=== PATIENT | male | born 1985 | race Caucasian/White ===

== ENCOUNTER 2022-01-06 09:33 | Day surgery (SDC) | payer BC, OTHER ==
[~2022-01-06 09:33] MED LIST: Lactated Ringers 1,000 ML IV SCH; Lidocaine 2% 5 ML SDV ONE; Propofol 200 MG/20 ML SDV ONE; fentaNYL 100 MCG/2 ML SDV ONE
[2022-01-06 11:22] VITALS: BP 147/98; PULSE 94
== END 2022-01-06 11:11 | disposition home or self-care (01) ==
LOC: MW.SDS 09:33
PROVIDERS: ATTEND Surgery
DX: K31.89 Other diseases of stomach and duodenum (principal); K31.819 Angiodysplasia of stomach and duodenum without bleeding; K22.89 Other specified disease of esophagus; K21.9 Gastro-esophageal reflux disease without esophagitis; F17.210 Nicotine dependence, cigarettes, uncomplicated; Z79.899 Other long term (current) drug therapy
CPT/HCPCS: J2704; J3010; J7120

== ENCOUNTER 2023-03-27 08:01 | Observation (INO) | payer OTHER ==
[2023-03-27] MEDS ORDERED: Sodium Chloride 0.9% 1,000 ML IV ONE (08:09)
[2023-03-27] MEDS ORDERED: Sodium Chloride 0.9% 10 ML Syringe FLUSH PRN ×2 (08:09→14:00)
[2023-03-27] MEDS ORDERED: Sodium Chloride 0.9% 2.5 ML Syringe FLUSH PRN ×2 (08:09→14:00)
[2023-03-27] MEDS ORDERED: Famotidine 20 MG/2 ML SDV IVPUSH ONE (08:43)
[2023-03-27] MEDS ORDERED: Ondansetron 4 MG/2 ML SDV IVPUSH ONE (08:43)
[2023-03-27 08:47] LABS: BASOPHILS PERCENT AUTO 0.3 % (0.0-1.5); HEMATOCRIT 48.3 % (38.0-50.0); HEMOGLOBIN 16.6 g/dL (13.0-17.0); LYMPHOCYTES ABSOLUTE AUTO 0.5 K/uL (0.6-2.4); LYMPHOCYTES PERCENT AUTO 5.6 % (16.0-40.0); MEAN CORPUSCULAR HEMOGLOBIN 32.3 pg (27.0-32.0); MEAN CORPUSCULAR HGB CONC 34.4 g/dL (31.0-37.0); MONOCYTES ABSOLUTE AUTO 0.5 K/uL (0.0-0.8); MONOCYTES PERCENT AUTO 5.6 % (0.0-15.0); NEUTROPHILS ABSOLUTE AUTO 8.1 K/uL (1.4-5.7); NEUTROPHILS PERCENT AUTO 88.5 % (48.0-80.0); NRBC ABSOLUTE 0 K/uL; PLATELET COUNT,PLT 157 K/uL (150-400); RED BLOOD CELL COUNT 5.14 M/uL (4.50-5.90); WHITE BLOOD CELL COUNT,WBC 9.21 K/uL (4.0-11.0)
[2023-03-27 09:15] LABS: A/G RATIO 0.8 (0.9-1.6); ALBUMIN 3.6 g/dL (3.4-5.0); BILIRUBIN TOTAL 1.2 mg/dL (0.2-1.0); CALCIUM 9.4 mg/dL (8.5-10.1); CARBON DIOXIDE,CO2 24.1 mmol/L (21.0-32.0); CREATININE 1.3 mg/dL (0.8-1.3); EST CRCL DRUG DOSING (CG) 82.86 mL/min; POTASSIUM,K 3.7 mmol/L (3.5-5.1); PROTEIN TOTAL,TP 8.4 g/dL (6.4-8.2)
[2023-03-27 09:17] LABS: CORONAVIRUS COVID-19 NAA NEGATIVE (NEGATIVE); INFLUENZA A NAA NEGATIVE (NEGATIVE); INFLUENZA B NAA NEGATIVE (NEGATIVE); RESPIRATORY SYNCYTIAL VIR NAA NEGATIVE (NEGATIVE)
[2023-03-27 11:13] LABS: INR 1.12 (0.86-1.11)
[2023-03-27] MEDS ORDERED: ACETYLCYSTEINE IV ONE ×2 (13:30)
[2023-03-27] MEDS ORDERED: DEXTROSE 5% IV ONE ×2 (13:30)
[2023-03-27] MEDS ORDERED: WATER IV ONE ×2 (13:30)
[2023-03-27] MEDS ORDERED: Pantoprazole 40 MG in Sodium Chloride 0.9% 10 ML IVPUSH SCH (14:00)
[2023-03-27] MEDS ORDERED: Ondansetron 4 MG/2 ML SDV IVPUSH PRN (14:00)
[2023-03-27] MEDS ORDERED: LORazepam 2 MG/ML SDV IVPUSH PRN (14:03)
[2023-03-27] MEDS ORDERED: diphenhydrAMINE 50 MG Cap PO ONE (16:11)
[2023-03-27] MEDS: Sodium Chloride 0.9% 1,000 ML IV SCH ×2 (16:17→21:36)
[2023-03-27] MEDS ORDERED: Folic Acid 1 MG Tab PO SCH (21:00)
[2023-03-27] MEDS ORDERED: Thiamine 100 MG Tab PO SCH (21:00)
[2023-03-28] MEDS: Sodium Chloride 0.9% 1,000 ML IV SCH (05:02)
[2023-03-28 06:37] LABS: BASOPHILS PERCENT AUTO 0.7 % (0.0-1.5); EOSINOPHILS PERCENT AUTO 0.7 % (0.0-7.0); HEMATOCRIT 46.1 % (38.0-50.0); HEMOGLOBIN 15.5 g/dL (13.0-17.0); LYMPHOCYTES PERCENT AUTO 24.4 % (16.0-40.0); MEAN CORPUSCULAR HEMOGLOBIN 31.7 pg (27.0-32.0); MEAN CORPUSCULAR HGB CONC 33.6 g/dL (31.0-37.0); MEAN CORPUSCULAR VOLUME 94.3 fL (80.0-98.0); MONOCYTES ABSOLUTE AUTO 0.7 K/uL (0.0-0.8); MONOCYTES PERCENT AUTO 17.2 % (0.0-15.0); NEUTROPHILS ABSOLUTE AUTO 2.3 K/uL (1.4-5.7); NRBC ABSOLUTE 0 K/uL; PLATELET COUNT,PLT 122 K/uL (150-400); RED BLOOD CELL COUNT 4.89 M/uL (4.50-5.90); WHITE BLOOD CELL COUNT,WBC 4.06 K/uL (4.0-11.0)
[2023-03-28 06:44] LABS: INR 1.17 (0.86-1.11)
[2023-03-28 07:13] LABS: A/G RATIO 0.6 (0.9-1.6); ALBUMIN 2.9 g/dL (3.4-5.0); CARBON DIOXIDE,CO2 27.9 mmol/L (21.0-32.0); CREATININE 1.2 mg/dL (0.8-1.3); EST CRCL DRUG DOSING (CG) 89.77 mL/min; MAGNESIUM 1.7 mg/dL (1.8-2.4); PHOSPHORUS 4.6 mg/dL (2.6-4.7); PROTEIN TOTAL,TP 7.6 g/dL (6.4-8.2)
[2023-03-28] MEDS ORDERED: Lisinopril/Hydrochlorothiazide 10-12.5 MG Tab PO SCH (09:00)
[2023-03-28 10:11] VITALS: BP 138/103; PULSE 89
[2023-03-30 12:07] LABS: HBSAG SCREEN Negative (Negative); HCV AB Non Reactive (Non Reactive); HEP A AB, IGM Negative (Negative); HEP B CORE AB, IGM Negative (Negative)
== END 2023-03-28 10:59 | disposition home or self-care (01) ==
LOC: MW.ED 08:01 → MW.MS 13:44
PROVIDERS: ADMIT Family Medicine; ATTEND Family Medicine
DX: T50.905A Adverse effect of unspecified drugs, medicaments and biological substances, initial encounter (principal); T39.1X1A Poisoning by 4-Aminophenol derivatives, accidental (unintentional), initial encounter; B17.9 Acute viral hepatitis, unspecified; I10 Essential (primary) hypertension; F10.10 Alcohol abuse, uncomplicated; R11.2 Nausea with vomiting, unspecified; K71.6 Toxic liver disease with hepatitis, not elsewhere classified; J30.9 Allergic rhinitis, unspecified; K21.9 Gastro-esophageal reflux disease without esophagitis; Z98.890 Other specified postprocedural states; Z87.891 Personal history of nicotine dependence; Z78.9 Other specified health status; Z88.1 Allergy status to other antibiotic agents; Z20.822 Contact with and (suspected) exposure to COVID-19; Z79.899 Other long term (current) drug therapy
CPT/HCPCS: 0241U; 36415; 74176; 76705; 80053; 80074; 80143; 83690; 83735; 84100; 85025; 85610; A9270; C9113; J0132; J2405; J3490; J7030; J7060; 96361; 96374; 96375; 99284; 99285-25

== ENCOUNTER 2023-04-14 06:37 | Emergency (ER) | payer OTHER ==
[2023-04-14] MEDS ORDERED: Ondansetron 4 MG/2 ML SDV IVPUSH ONE (06:43)
[2023-04-14] MEDS ORDERED: Sodium Chloride 0.9% 10 ML Syringe FLUSH PRN (06:43)
[2023-04-14] MEDS ORDERED: Ketorolac 30 MG/ML SDV IVPUSH ONE (06:43)
[2023-04-14] MEDS ORDERED: Sodium Chloride 0.9% 2.5 ML Syringe FLUSH PRN (06:43)
[2023-04-14 07:21] LABS: BASOPHILS ABSOLUTE AUTO 0.1 K/uL (0.0-0.1); BASOPHILS PERCENT AUTO 0.7 % (0.0-1.5); EOSINOPHILS ABSOLUTE AUTO 0.2 K/uL (0.0-0.7); EOSINOPHILS PERCENT AUTO 1.9 % (0.0-7.0); HEMATOCRIT 42.2 % (38.0-50.0); HEMOGLOBIN 14.3 g/dL (13.0-17.0); LYMPHOCYTES ABSOLUTE AUTO 1.4 K/uL (0.6-2.4); LYMPHOCYTES PERCENT AUTO 15.8 % (16.0-40.0); MEAN CORPUSCULAR HEMOGLOBIN 31.8 pg (27.0-32.0); MEAN CORPUSCULAR HGB CONC 33.9 g/dL (31.0-37.0); MONOCYTES ABSOLUTE AUTO 0.9 K/uL (0.0-0.8); MONOCYTES PERCENT AUTO 9.7 % (0.0-15.0); NEUTROPHILS ABSOLUTE AUTO 6.6 K/uL (1.4-5.7); NEUTROPHILS PERCENT AUTO 71.9 % (48.0-80.0); PLATELET COUNT,PLT 273 K/uL (150-400); RED BLOOD CELL COUNT 4.49 M/uL (4.50-5.90)
[2023-04-14 07:29] LABS: APPEARANCE,URINE CLEAR; BILIRUBIN,URINE NEGATIVE (NEGATIVE); COLOR,URINE YELLOW; GLUCOSE,URINE NEGATIVE (NEGATIVE); KETONES,URINE NEGATIVE (NEGATIVE); LEUKOCYTE ESTERASE,URINE NEGATIVE (NEGATIVE); NITRITE,URINE NEGATIVE (NEGATIVE); OCCULT BLOOD,URINE NEGATIVE (NEGATIVE); PROTEIN,URINE NEGATIVE (NEGATIVE)
[2023-04-14 07:43] LABS: A/G RATIO 0.8 (0.9-1.6); ALBUMIN 3.3 g/dL (3.4-5.0); CARBON DIOXIDE,CO2 29.7 mmol/L (21.0-32.0); CREATININE 1.3 mg/dL (0.8-1.3); EST CRCL DRUG DOSING (CG) 82.86 mL/min; POTASSIUM,K 4.1 mmol/L (3.5-5.1); PROTEIN TOTAL,TP 7.5 g/dL (6.4-8.2)
[2023-04-14 09:03] LABS: C. TRACHOMATIS BY PCR NOT DETECTED; N. GONORRHOEAE BY PCR NOT DETECTED
[2023-04-14 09:22] VITALS: BP 128/90; PULSE 86
== END 2023-04-14 09:20 | disposition home or self-care (01) ==
LOC: MW.ED 06:37
DX: N45.2 Orchitis (principal); K21.9 Gastro-esophageal reflux disease without esophagitis; Z88.1 Allergy status to other antibiotic agents; Z79.899 Other long term (current) drug therapy
CPT/HCPCS: 36415; 76870; 80053; 81003; 83690; 85025; 87491; 87591; 93976; 96374; 96375; 99284; J1885; J2405; J3490